=== PATIENT | male | born 1975 | race Caucasian/White ===

== ENCOUNTER 2019-11-09 15:25 | Emergency (ER) | payer OTHER ==
[~2019-11-09] VITALS: Ht 175.3 cm; Wt 97.5 kg
[2019-11-09 16:51] LABS: BASOPHIL % 1.3 % (0-2); PLATELET COUNT 200 x10^3mcL (130-400); RED CELL DISTRIBUTION WIDTH 12.7 % (11.5-14.5)
[2019-11-09 16:57] LABS: CALCIUM 9.3 mg/dL (8.5-10.1); CARBON DIOXIDE 28.3 mmol/L (21-32); CHLORIDE SERUM 104 mmol/L (98-107); CREATININE SERUM 0.9 mg/dL (0.7-1.3); GFR1 > 60 mL/min; GLUCOSE SERUM 90 mg/dL (74-106); POTASSIUM SERUM 4.4 mmol/L (3.5-5.1); SODIUM SERUM 142 mmol/L (136-145)
[2019-11-09 17:04] LABS: ALKALINE PHOSPHATASE 80 U/L (46-116); ALT/SGPT 23 U/L (16-63); AST/SGOT 16 U/L (15-37); BILIRUBIN TOTAL 0.57 mg/dL (0.20-1.00); LIPASE 143 IU/L (73-393); TOTAL PROTEIN, SERUM 7.7 g/dL (6.4-8.2)
[2019-11-09 18:00] VITALS: BP 130/75
== END 2019-11-09 18:00 | disposition home or self-care (01) ==
LOC: ED 15:25
PROVIDERS: Emergency Medicine
DX: J98.01 Acute bronchospasm (principal); Z90.89 Acquired absence of other organs; Z94.9 Transplanted organ and tissue status, unspecified
CPT/HCPCS: 36415; J1100; J7620